=== PATIENT | male | born 1930 | race Caucasian/White ===

== ENCOUNTER 2017-06-17 06:21 | Inpatient (IN) | payer OTHER ==
[2017-05-25 13:16] VITALS: BMI 29.0
--- NOTE | 2017-05-25 14:00 | PAT Medication Instructions ---
Service Date May 25, 2017. Current Home Medication List Acetaminophen (Tylenol Arthritis Ext Rel), 650 MG PO Q8H PRN for PRN Albuterol Hfa (Ventolin Hfa), 2 PUFFS INH Q4H PRN for RN Amoxicillin (Amoxil), 500 MG PO TID Aspirin (Aspirin Ec), 81 MG PO QAM Atorvastatin (Lipitor), 40 MG PO QPM Benzonatate (Tessalon Perles), 100 MG PO TID PRN for N Glimepiride (Glimepiride), 1 TAB PO QAM Lactic Acid (Ammonium Lactate) (Amlactin), 1 DOSE TOP DAILY Magnesium Oxide (Mag-Ox), 400 MG PO QAM Meclizine Hcl (Meclizine Hcl), 25 MG PO BID PRN Metoprolol Succinate (Toprol Xl), 25 MG PO QAM Nitroglycerin (Nitrostat), 0.4 MG UT PRN Tamsulosin Hcl (Flomax), 0.4 MG PO QPM Warfarin Sodium (Coumadin), 2.5 MG PEG QPM Medication Instructions For Your Scheduled Surgery Amoxicillin (Amoxil), 500 MG PO TID (to be completed prior to surgery) - Check with surgeon and coumadin clinic for instructions: Warfarin Sodium (Coumadin), 2.5 MG PEG QPM - Hold the following medications 24 hours prior to surgery: Lactic Acid (Ammonium Lactate) (Amlactin), 1 DOSE TOP DAILY - Hold the following medications the morning of surgery: Benzonatate (Tessalon Perles), 100 MG PO TID PRN for N Glimepiride (Glimepiride), 1 TAB PO QAM Magnesium Oxide (Mag-Ox), 400 MG PO QAM - Take the following medications the morning of surgery with a sip of water: Nitroglycerin (Nitrostat), 0.4 MG UT PRN (if needed) Meclizine Hcl (Meclizine Hcl), 25 MG PO BID PRN (if needed) Metoprolol Succinate (Toprol Xl), 25 MG PO QAM Aspirin (Aspirin Ec), 81 MG PO QAM Albuterol Hfa (Ventolin Hfa), 2 PUFFS INH Q4H PRN for RN (if needed) Acetaminophen (Tylenol Arthritis Ext Rel), 650 MG PO Q8H PRN for PRN (okay to take up to 4 hours prior to surgery if needed) - Take the following medications as scheduled the night before surgery: Tamsulosin Hcl (Flomax), 0.4 MG PO QPM Nitroglycerin (Nitrostat), 0.4 MG UT PRN (if needed) Meclizine Hcl (Meclizine Hcl), 25 MG PO BID PRN (if needed) Benzonatate (Tessalon Perles), 100 MG PO TID PRN for N (if needed) Atorvastatin (Lipitor), 40 MG PO QPM Albuterol Hfa (Ventolin Hfa), 2 PUFFS INH Q4H PRN for RN (if needed) Acetaminophen (Tylenol Arthritis Ext Rel), 650 MG PO Q8H PRN for PRN (if needed) If you have any questions please call us at [phone] or [phone] or [phone]
--- NOTE | 2017-05-25 14:23 | DIAGNOSTIC IMAGING REPORT ---
CHEST 2 VIEWS ROUTINE CLINICAL HISTORY: PAT preoperative evaluation COMPARISON STUDY: No previous studies for comparison. FINDINGS: The bones soft tissues and hemidiaphragms are normal. The cardiomediastinal silhouette is normal. The lungs are clear. The pulmonary vasculature is normal. IMPRESSION: Negative chest. The above report was generated using voice recognition software. It may contain grammatical, syntax or spelling errors. Electronically signed by: Lalito Reyes M.D. 05/25/2017 2:22 PM Dictated Date/Time: 05/25/2017 2:22 PM
[2017-05-25 14:31] LABS: BASO % 0.1 %; BASO ABS # 0.01 K/uL (0-0.2); HEMATOCRIT 41.2 % (42-52); HEMOGLOBIN 13.5 g/dL (14.0-18.0); IG# 0.06 K/uL (0.00-0.02); LYMPH ABS # 0.83 K/uL (1.2-3.4); MEAN CELL VOLUME 97.6 fL (80-100); MEAN CORPUSCULAR HGB CONC 32.8 g/dl (32-36); MEAN PLATELET VOLUME 9.2 fL (7.4-10.4); MONO % 2.4 %; MONO ABS # 0.33 K/uL (0.11-0.59); NEUT % 91.1 %; NEUT ABS # 12.51 K/uL (1.4-6.5); PLATELET COUNT 237 K/uL (130-400); RED CELL DISTRIBUTION WIDTH CV 14.1 % (11.5-14.5); RED CELL DISTRIBUTION WIDTH SD 50.2 fL (36.4-46.3); WHITE BLOOD COUNT 13.74 K/uL (4.8-10.8)
[2017-05-25 14:46] LABS: INR 1.9 (0.9-1.1)
[2017-05-25 15:32] LABS: ALBUMIN 3.5 gm/dl (3.4-5.0); CALCIUM 8.9 mg/dl (8.5-10.1); CREATININE 1.47 mg/dl (0.60-1.40); POTASSIUM 4.4 mmol/L (3.5-5.1)
[2017-05-25 15:50] LABS: HEMOGLOBIN A1C 7.2 % (4.5-5.6)
--- NOTE | 2017-05-27 10:51 | HISTORY & PHYSICAL EXAMINATION ---
DATE OF ADMISSION: 06/17/2017 CHIEF COMPLAINT: Right knee pain. HISTORY OF PRESENT ILLNESS: Mr. Ruiz is an 86-year-old male with a 1 year history of right knee pain. The patient rates his pain a 7/10. He has pain with his daily activities. He has limited standing and walking tolerance. Pain is worse with weightbearing. The patient has had injections, bracing, Tylenol and home exercise program without relief. He has failed conservative treatment and is scheduled for right knee replacement. PAST MEDICAL HISTORY: Hypertension, sleep apnea, AFib, diabetes and history of CVA. He denies DVT or heart disease. PAST SURGICAL HISTORY: Left total knee arthroplasty. SOCIAL HISTORY: The patient denies alcohol or tobacco use. He lives in a 2-story home. He lives alone and is retired. FAMILY HISTORY: Negative for DVT. DISCHARGE MEDICATIONS: Aspirin 325 mg daily, meclizine 25 mg daily, tamsulosin 0.4 mg daily, atorvastatin 40 mg daily, omeprazole 20 mg daily, amlodipine 2.5 mg daily, lisinopril 10 mg daily, Januvia 25 mg, Ventolin HFA 2 puffs q. 4-6 hours p.r.n., Coumadin as prescribed, metoprolol 25 mg daily. ALLERGIES: None. REVIEW OF SYSTEMS: See HPI. Ten other systems reviewed, all negative. PHYSICAL EXAMINATION: VITAL SIGNS: Height 5 foot 8, weight 200 pounds. BMI is 30. GENERAL: This is a well-developed, well-nourished male who is alert and oriented x3. Mood and affect are appropriate. HEAD, EYES, EARS, NOSE, AND THROAT: Normocephalic, atraumatic. Mucous membranes are moist and intact. NECK: Supple without lymphadenopathy. HEART: Regular rate and rhythm without murmurs, rubs or gallops. LUNGS: Clear to auscultation without wheezes or rhonchi. ABDOMEN: Soft and nontender. Bowel sounds are equal and active. EXTREMITIES: No ecchymosis, redness or warmth. He has a varus deformity. Range of motion is from 3-110 degrees with +1 laxity. He has moderate effusion. He is neurovascularly intact with +5/5 strength. X-RAY EXAMINATION: AP and lateral views show joint space narrowing and osteophyte formation. IMPRESSION: Degenerative joint disease, right knee. PLAN: The patient will be admitted for a right total knee arthroplasty. The patient is on chronic Coumadin. He was instructed to stop this 5 days preoperatively. We will resume postop. He follows with the [facility] in [place]. The patient is debating between [place] and home with home PT upon discharge.
[~2017-06-17] VITALS: Ht 172.7 cm; Wt 88.7 kg
[2017-06-17] VITALS (10 sets, daily range): BP systolic 90–155; BP diastolic 58–81; PULSE 68–84; TEMP 36.5–37; O2SAT 94–99; Ht 172.7 cm; Wt 88.7 kg
[~2017-06-17 06:21] MED LIST: ACET1TAB84 PO; ACETAMINOPHEN 500 MG TAB PO SCH; AMOX500C3 PO; ASPI81TA28 PO; ATOR-24 PO; BENZ100C18 PO; CEFAZOLIN 2000MG IV PUSH 15 ML IV SCH; CeleBREX 200 MG CAP PO SCH; DEXAMETHASONE 4 MG TAB PO SCH; FAMOTIDINE 20 MG TAB PO SCH; GABAPENTIN 300 MG CAP PO SCH; GLIM1TAB2 PO; LACT1LOT3 TOP; LACTATED RINGER'S 1000ML 1,000 ML IV SCH; LACTATED RINGER'S 1000ML 500 ML IV SCH; MAGN400T6 PO; MECL1TAB42 PO; METO25TA3 PO; METOCLOPRAMIDE HCL 10 MG TAB PO SCH; NTRGSL/4 UT; ROPIVACAINE 5MG/ML 30 ML 150 MG, BUPIVACAINE 0.5% MPF INJ 30 ML, EpINEphrine HCL INJ 0.... INFIL SCH; TAMS0.4C38 PO; VNTHFA/IN INH; WARF1TAB PEG
[2017-06-17] MEDS ORDERED: BUPIVACAINE 0.5 % 5 MG/1 ML PF 10ML VIAL ONE (06:29)
--- NOTE | 2017-06-17 06:58 | History & Physical Bridge Note ---
H&P Re-Evaluation Bridge Note: I have examined the patient, reviewed the History & Physical and in the interval since the performance of the History & Physical I have noted the following changes of clinical significance: No changes noted
[2017-06-17] MEDS ORDERED: MIDAZOLAM HCL 1 MG/ML 2ML VIAL ONE ×2 (07:00→08:00)
[2017-06-17] MEDS ORDERED: LIDOCAINE HCL 2% 2 ML VIAL (20MG/ML) ONE ×2 (07:06→07:43)
[2017-06-17] MEDS ORDERED: PROPOFOL IV EMULSION 10 MG/ML 20 ML VIAL IV ONE ×2 (07:06→07:43)
[2017-06-17] MEDS ORDERED: POVIDONE-IODINE OP SOLN 30 ML BTL ONE (07:06)
[2017-06-17] MEDS ORDERED: BACITRACIN 50000 UNIT VIAL ONE (07:06)
[2017-06-17] MEDS ORDERED: ORTHO JOINT ANESTHETIC ONE (07:06)
[2017-06-17 07:15] LABS: PTT PATIENT 25.4 SECONDS (21.0-31.0)
[2017-06-17] MEDS ORDERED: ONDANSETRON INJ 2 MG/ML 2 ML VIAL ONE ×2 (07:43→09:04)
[2017-06-17] MEDS ORDERED: DEXAMETHASONE SOD INJ 4 MG/ML VIAL ONE (07:43)
[2017-06-17] MEDS ORDERED: FENTANYL CITRATE INJ 50 MCG/1 ML 2 ML VIAL ONE (07:43)
[2017-06-17] MEDS ORDERED: BUPIVACAINE 0.25% 30 ML VIAL ONE (07:54)
[2017-06-17] MEDS ORDERED: FENTANYL CITRATE INJ 50 MCG/1 ML 2 ML VIAL IV PRN (08:30)
[2017-06-17] MEDS ORDERED: ATROPINE SULFATE 0.1 MG/ML 5ML SYR IV PRN (08:30)
[2017-06-17] MEDS ORDERED: EpHEDrine SULFATE INJ 50 MG/ML AMP IV PRN (08:30)
[2017-06-17] MEDS ORDERED: ONDANSETRON INJ 2 MG/ML 2 ML VIAL IV PRN ×2 (08:30→10:00)
[2017-06-17] MEDS ORDERED: EpHEDrine SULFATE INJ 50 MG/ML AMP ONE (08:48)
[2017-06-17] MEDS ORDERED: PHENYLEPHRINE 100MCG/ML 5ML SYR ONE ×2 (08:48→09:57)
--- NOTE | 2017-06-17 09:11 | [facility] Post Operative Brief Note ---
Immediate Operative Summary Operative Date Jun 17, 2017. Pre-Operative Diagnosis Degenerative Joint Disease, Right Knee Post-Operative Diagnosis Degenerative Joint Disease, Right Knee Procedure(s) Performed Right Total Knee Arthroplasty Surgeon Dr Marmolejo Equine Vet Surgeon(s) Rush Bose PA-C Estimated Blood Loss 5cc Findings Consistent with Post-Op Diagnosis Specimens A: Right Knee Bone and Tissue Anesthesia Type General Complication(s) none Disposition Disposition: Recovery Room / PACU
--- NOTE | 2017-06-17 09:13 | [facility] Operative Report ---
Operative Report Operative Date Jun 17, 2017. Pre-Operative Diagnosis Degenerative Joint Disease, Right Knee Post-Operative Diagnosis Degenerative Joint Disease, Right Knee Procedure(s) Performed Right Total Knee Arthroplasty utilizing [employer] journey 2 patient matched total knee arthroplasty size 6 femur 5 tibia 12 Mini [address] Marmolejo Correctional Captain Surgeon(s) Rush Bose PA-C Estimated Blood Loss 5cc Findings Patient presents with severe end-stage tricompartmental degenerative joint disease varus alignment subchondral cysts sclerotic bone as well as osteophyte formation on marginal osteophyte formation varus alignment Specimens A: Right Knee Bone and Tissue Anesthesia Type General Complication(s) none Disposition Recovery Room / PACU Description of Procedure After proper prepping and draping of the Right lower extremity anterior midline incision was made over the region of the extensor extensor mechanism after meticulous hemostasis was obtained and maintained in subcutaneous tissues a medial parapatellar incision was made The patella was subluxed lateralward the medial lateral gutter were cleaned from any hypertrophic synovitis and scar tissue of the distal femoral block was placed and the distal femoral osteotomy cut was made subsequently the chamfers anterior and posterior osteotomy cuts were made utilizing the 4-in-1 block the tibia was subsequently subluxed anteriorward medial and ateral meniscal remnants were excised in their entirety remnants of the anterior and posterior cruciate ligaments were excised in their entirety excellent exposure of the proximal tibia was obtained the tibial osteotomy guide was placed on the proximal tibial osteotomy cut was made once again the knee was irrigated with copious amounts of sterile saline solution the patella was subsequently everted lateralward thickened scar tissue around the patella was removed the patella was subsequently cut utilizing a freehand technique and was drilled prepared for final preparation and placement of patella socially flexion-extension gaps were checked and the equal and symmetric trials were placed to the appropriate femoral and tibial trials with poly-spacer being placed for equal flexion and extension gaps and full range of motion including extension to 0 and flexion to 140 the trial components after having been taken to recovery range of motion was subsequently removed meticulous hemostasis was obtained and maintained subsequently a knee block injection of joint cocktail including ropivacaine 0.5% 150 mg. Bupivacaine 0.5 % epinephrine 1-200,030 mL's toradol 30 mg dexamethasone 4 mg ketamine 10 mg clonidine 100 micrograms normal saline solution 30 mg was infiltrated into the soft tissues of the posterior knee medial lateral gutters and periosteal synovium special attention was paid to protect neurovascular structures at all times subsequently trial components having been removed the knee was irrigated with sterile saline solution. debris was removed the proximal tibia was subsequently prepared and was made ready for the placement of the tibial component tibial component was also cemented and tamped into position the femoral component was subsequently placed and cemented in the position the patellar component was subsequently cemented in position because hemostasis once again obtained and maintained wound having been thoroughly irrigated with debridement and debridement lavage was performed as well as a medial parapatellar incision closed with #1 Vicryl in interrupted fashion subcutaneous was closed with #2 Vicryl skin was closed with skin clips. PA-C was necessary for prepping and drapping as well as wound closure of deep fascia Sub cutaneous tissue and skin and was necessary for the case. A sterile compressive dressing was placed patient was taken to recovery in stable condition of report dictated by Jaleel I attest to the content of the Intraoperative Record and any orders documented therein. Any exceptions are noted below. I attest to the content of the Intraoperative Record and any orders documented therein. Any exceptions are noted below.
[2017-06-17] MEDS ORDERED: PHENYLEPHRINE HCL INJ 10 MG/ML VIAL ONE (09:14)
[2017-06-17] MEDS ORDERED: ALUMINUM/MAGNESIUM/SIMETH (MAALOX MAX) 30 ML UDC PO PRN (10:00)
[2017-06-17] MEDS ORDERED: MAGNESIUM HYDROXIDE SUSP 30 ML UDC PO PRN (10:00)
[2017-06-17] MEDS ORDERED: ALBUTEROL HFA 8 GM INHALER INH PRN (10:00)
[2017-06-17] MEDS ORDERED: NITROGLYCERIN 0.4 MG SL PER TAB CHARGE UT PRN (10:00)
[2017-06-17] MEDS ORDERED: MoRPHine SULFATE 2 MG/ML CARP IV PRN (10:00)
[2017-06-17] MEDS ORDERED: OXYCODONE HCL IR 5 MG TAB (IMMEDIATE RELEASE) PO PRN (10:00)
--- NOTE | 2017-06-17 10:06 | DIAGNOSTIC IMAGING REPORT ---
R KNEE 1 OR 2 VIEWS ROUTINE CLINICAL HISTORY: 86 years-old Male presenting with AP/LATERAL IN PACU RIGHT KNEE. TECHNIQUE: Frontal and crosstable lateral views of the right knee were obtained. COMPARISON: None. FINDINGS: Postsurgical changes of total right knee arthroplasty with patellar resurfacing. Expected intra-articular and subcutaneous emphysema. A surgical drain and skin natalie are in place. No malalignment. No periprosthetic fracture. No hardware complication. Osteophyte noted at the medial femoral condyle. IMPRESSION: Expected postsurgical findings of total right knee arthroplasty with patellar resurfacing. Electronically signed by: Omar Patel M.D. 06/17/2017 10:04 AM Dictated Date/Time: 06/17/2017 10:04 AM
[2017-06-17] MEDS ORDERED: PHARMACY GLYCEMIC MGMT CONSULT PRN (10:14)
--- NOTE | 2017-06-17 10:38 | Anesthesiology Progress Note ---
Anesthesia Post Op Note Date & Time Jun 17, 2017 at 10:38 Vital Signs Pain Intensity: 0 Vital Signs Past 12 Hours Date Time Temp Pulse Resp B/P (MAP) Pulse Ox O2 Delivery O2 Flow Rate FiO2 06/17/17 10:25 36.2 81 15 112/63 97 Nasal Cannula 2 06/17/17 10:15 84 18 103/63 98 Nasal Cannula 2 06/17/17 10:05 83 14 109/66 100 Oxymask 10 06/17/17 09:55 85 17 99/68 100 Oxymask 10 06/17/17 09:48 36.1 87 13 98/67 100 Oxymask 10 06/17/17 06:45 36.6 68 20 155/81 98 Room Air Notes Mental Status: alert / awake / arousable, participated in evaluation Pt Amnestic to Procedure: Yes Nausea / Vomiting: adequately controlled Pain: adequately controlled Airway Patency, RR, SpO2: stable & adequate BP & HR: stable & adequate Hydration State: stable & adequate Anesthetic Complications: no major complications apparent
[2017-06-17] MEDS ORDERED: DEXTROSE 50% 50 ML SYR IV PRN (11:15)
[2017-06-17] MEDS ORDERED: GLUCOSE 40% GEL 15 GM TUBE PO PRN (11:15)
[2017-06-17] MEDS ORDERED: GLUCAGON FOR INJ 1 MG VIAL SQ PRN (11:15)
[2017-06-17] MEDS ORDERED: GLUCOSE 10 TABS/TUBE PO PRN (11:15)
[2017-06-17] MEDS ORDERED: CMD/25 PO ×2 (11:43)
[2017-06-17] MEDS: SODIUM CHLORIDE 0.9% 1000ML 1,000 ML IV SCH ×2 (11:54→21:42)
[2017-06-17] MEDS: INSULIN ASPART 100 UNITS/ML 3 ML PEN SC SCH ×4 (12:23→23:59)
[2017-06-17] MEDS: FERROUS GLUCONATE 324 MG TAB PO SCH ×2 (12:24→19:11)
--- NOTE | 2017-06-17 12:42 | Pharmacy Progress Note ---
Glycemic Control Intl Consult Date of Service Jun 17, 2017. Scope Glycemic Pharmacist consulted by Diego on 06/17/17 for glycemic control and to write orders per [facility] inpatient glycemic control protocol Objective Weight (Kilograms): 88.70 Accuchecks BSG (last 24hrs): Test 06/17/17 09:52 06/17/17 11:11 Bedside Glucose 186 mg/dl (70-99) 203 mg/dl (70-99) Recent Pertinent Medications Outpatient Anti-diabetic Regimen: * Glimepiride 1 mg PO daily * A1c = 7.2 % 05/25/17 Risk Factors for Insulin Resistance: * Steroids: ortho + dexamethasone 8 mg PO pre-op (+/- dex 4 mg IV) * Recent Surgery: R-TKA * Diet: T2DM Assessment & Plan ASSESSMENT: * 86 yr old T2DM male admitted for R-TKA * Pt is maintained on oral antidiabetic agents as an outpatient. * Will hold oral agents for admission and utilize SQ basal bolus insulin regimen which is the recommended regimen for inpatient glycemic control. * Will initiate weight based insulin dosing for insulin helga patient and titrate based on BSG trends. * Will utilize weight/stress 3 for POD #0 bolus insulin due to administration of steroids. PLAN FOR INPATIENT GLYCEMIC CONTROL: * Holding outpatient oral diabetes medications * Basal insulin * Lantus 30 units SQ x 1 * Further Lantus to be determined on 06/18 * Bolus Insulin * NOVOLOG per scale ACHS or Q6hrs while NPO * Goal Range: Low 110 mg/dL - High 140 mg/dL * Correction Factor: 20 mg/dL/unit * Nutritional / Prandial insulin per carb ratio of 1 unit per 6 grams CHO consumed * Add overnight check with coverage at 00 and 04 DISCHARGE RECOMMENDATIONS: * Continue outpatient regimen on discharge and titrate dose per out patient provider. Thank you.
--- NOTE | 2017-06-17 12:58 | Medical Consult ---
Consultation Date of Consultation: Jun 17, 2017. Attending Physician: Esau Marmolejo D.O. History of Present Illness 86 year old male who is s/p right TKA today by Dr. Marmolejo. Post operatively the patient is doing well. He reports his pain is well controlled. No abdominal pain or nausea. He denies chest pain and shortness of breath. No lightheadedness , dizziness, or diaphoresis. He denies numbness and tingling to the BLLE. He has not voided since surgery. Past Medical/Surgical History Medical Problems: (1) Bronchial asthma Status: Chronic (2) CAD (coronary artery disease) Permanent Comment: 2013 - s/p JONATAN x 3 to proximal RCA Status: Chronic (3) CKD (chronic kidney disease), stage III Status: Chronic (4) CVA (cerebral vascular accident) Status: Chronic (5) DM type 2 (diabetes mellitus, type 2) Status: Chronic (6) Dyslipidemia Status: Chronic (7) GERD (gastroesophageal reflux disease) Status: Chronic (8) HTN (hypertension) Status: Chronic (9) GASPER (obstructive sleep apnea) Status: Chronic (10) Paroxysmal A-fib Status: Chronic Surgical Problems: (1) History of carotid endarterectomy Permanent Comment: right Status: Chronic (2) History of total left knee replacement Status: Chronic Family History non contributory due to patient's age Social History Smoking Status: Never Smoker Alcohol Use: none Allergies Coded Allergies: Glipizide (Verified Adverse Reaction, Unknown, PALPITATIONS, 06/17/17) Home Medications Coumadin (Warfarin Sod) 2.5 Mg Tab 1.25 Mg PO 5XWK Coumadin (Warfarin Sod) 2.5 Mg Tab 2.5 Mg PO 2XWK Thursday, Thursday Flomax (Tamsulosin Hcl) 0.4 Mg Cap 0.4 Mg PO QPM Nitrostat (Nitroglycerin) 0.4 Mg Tab 0.4 Mg UT PRN Tylenol Arthritis Ext Rel (Acetaminophen) 650 Mg Cplt 650 Mg PO Q8H PRN Mag-Ox (Magnesium Oxide) 400 Mg Tab 400 Mg PO QAM Amlactin (Lactic Acid (Ammonium Lactate)) 12 % Lot 1 Dose TOP DAILY Glimepiride 1 Mg Tab 1 Tab PO QAM 90 Days Ventolin Hfa (Albuterol) 200 Puffs/32114 Mcg Aers 2 Puffs INH Q4H PRN Toprol Xl (Metoprolol Succinate) 25 Mg Tabcr 25 Mg PO QAM Meclizine Hcl 25 Mg Tab 25 Mg PO BID PRN Lipitor (Atorvastatin Calcium) 40 Mg Tab 40 Mg PO QPM Aspirin Ec (Aspirin) 81 Mg Tab 81 Mg PO QAM Current Inpatient Medications Current Inpatient Medications Medications (Trade) Dose Ordered Sig/Graham Route Start Time Stop Time Status Last Admin Dose Admin Fentanyl Citrate (Fentanyl Inj) 25 mcg Q5M PRN IV 06/17/17 08:30 06/17/17 13:30 Ondansetron HCl (Zofran Inj) 4 mg ONE PRN IV 06/17/17 08:30 06/17/17 13:30 Ephedrine Sulfate (EpHEDrine SULFATE INJ) 5 mg Q5M PRN IV 06/17/17 08:30 06/17/17 13:30 Atropine Sulfate (Atropine Sulfate 0.1mg/ml Inj) 0.5 mg Q1M PRN IV 06/17/17 08:30 06/17/17 13:30 Albuterol (Ventolin Hfa Inhaler) 2 puffs Q4H PRN INH 06/17/17 10:00 07/17/17 09:59 Atorvastatin Calcium (Lipitor Tab) 40 mg QPM PO 06/17/17 21:00 07/17/17 20:59 Magnesium Oxide (Mag-Ox Tab) 400 mg QAM PO 06/18/17 09:00 07/18/17 08:59 Metoprolol Succinate (Toprol Xl Tab) 25 mg QAM PO 06/18/17 09:00 07/18/17 08:59 Nitroglycerin (Nitrostat Tab) 0.4 mg UD PRN UT 06/17/17 10:00 07/17/17 09:59 Tamsulosin HCl (Flomax Cap) 0.4 mg QPM PO 06/17/17 21:00 07/17/17 20:59 Morphine Sulfate (MoRPHine SULFATE INJ) 2 mg Q4HWA PRN IV 06/17/17 10:00 07/01/17 09:59 Insulin Aspart (novoLOG ASPART) SLIDING SCALE G... ACHS SC 06/17/17 12:00 07/17/17 11:59 06/17/17 12:23 8 UNITS Miscellaneous Information (Consult Glycemic Management Pharmacy) 1 ea UD PRN N/A 06/17/17 10:14 07/17/17 10:13 Sodium Chloride 1,000 ml @ 100 mls/hr Q10H IV 06/17/17 09:49 06/18/17 09:48 06/17/17 11:54 100 MLS/HR Cefazolin Sodium 2000 mg/Syringe 15 ml @ 3.75 mls/ min Q8H IV 06/17/17 16:00 06/18/17 00:03 Oxycodone HCl (Roxicodone Immediate Rel Tab) 1 TABLET FOR PAIN RATING... Q4H PRN PO 06/17/17 10:00 07/01/17 09:59 Acetaminophen (Tylenol Tab) 1,000 mg Q8H PO 06/17/17 14:00 07/17/17 09:59 Magnesium Hydroxide (Milk Of Magnesia Susp) 30 ml Q6H PRN PO 06/17/17 10:00 07/17/17 09:59 Senna (Senokot Tab) 17.2 mg HS PO 06/17/17 21:00 07/17/17 20:59 Docusate Sodium (coLACE CAP) 100 mg BID PO 06/17/17 21:00 07/17/17 20:59 Al Hydrox/Mg Hydrox/Simethicone (Maalox Max Susp) 15 ml Q4H PRN PO 06/17/17 10:00 07/17/17 09:59 Multivitamins (Multivitamin Tab) 1 tab QAM PO 06/18/17 09:00 07/18/17 08:59 Ondansetron HCl (Zofran Inj) 4 mg Q6H PRN IV 06/17/17 10:00 07/17/17 09:59 Ferrous Gluconate (Ferrous Gluconate Tab) 324 mg TIDM PO 06/17/17 12:30 07/17/17 12:29 06/17/17 12:24 324 MG Tramadol HCl (Ultram Tab) 1 tablet for pain rating... Q4H PRN PO 06/17/17 10:00 07/17/17 09:59 Glucose (Glucose 40% Gel) 15-30 GRAMS 15 GRAMS... UD PRN PO 06/17/17 11:15 07/17/17 11:14 Glucose (Glucose Chew Tab) 4-8 Tablets 4 Tabl... UD PRN PO 06/17/17 11:15 07/17/17 11:14 Dextrose (Dextrose 50% 50ML Syringe) 25-50ML OF 50% DW IV FOR... UD PRN IV 06/17/17 11:15 07/17/17 11:14 Glucagon (Glucagon Inj) 1 mg UD PRN SQ 06/17/17 11:15 07/17/17 11:14 Aspirin (Ecotrin Tab) 81 mg DAILY PO 06/18/17 09:00 07/17/17 20:59 Warfarin Sodium (Coumadin Tab) 1.25 mg SuTuWeThSa@1600 PO 06/18/17 16:00 07/18/17 15:59 Warfarin Sodium (Coumadin Tab) 2.5 mg NOW ONCE PO 06/17/17 16:00 06/17/17 16:01 Warfarin Sodium (Coumadin Tab) 2.5 mg MoFr@1600 PO 06/19/17 16:00 07/19/17 15:59 Insulin Glargine (Lantus Solostar Pen) 30 units 1300 ONCE SC 06/17/17 13:00 06/17/17 13:01 Insulin Aspart (novoLOG ASPART) SLIDING SCALE G... 0000,0400 SC 06/18/17 00:00 06/18/17 04:01 Review of Systems ROS per HPI, all other systems reviewed and negative Physical Exam Date Time Temp Pulse Resp B/P (MAP) Pulse Ox O2 Delivery O2 Flow Rate FiO2 06/17/17 12:03 84 17 127/69 (88) 96 Nasal Cannula 2.0 06/17/17 11:26 36.6 80 17 90/58 (69) 98 Nasal Cannula 2.0 06/17/17 11:00 Nasal Cannula 2.0 06/17/17 11:00 37.0 82 16 97/62 (74) 99 Nasal Cannula 2.0 06/17/17 11:00 Nasal Cannula 2.0 06/17/17 10:40 82 16 99/65 99 Nasal Cannula 2 06/17/17 10:25 36.2 81 15 112/63 97 Nasal Cannula 2 06/17/17 10:15 84 18 103/63 98 Nasal Cannula 2 06/17/17 10:05 83 14 109/66 100 Oxymask 10 06/17/17 09:55 85 17 99/68 100 Oxymask 10 06/17/17 09:48 36.1 87 13 98/67 100 Oxymask 10 06/17/17 06:45 36.6 68 20 155/81 98 Room Air General Appearance: WD/WN, no apparent distress Head: normocephalic, atraumatic Eyes: normal inspection, EOMI, sclerae normal ENT: hearing grossly normal, + pertinent finding (mucous membranes moist) Neck: supple, no JVD, trachea midline Respiratory/Chest: lungs clear, normal breath sounds, no respiratory distress Cardiovascular: regular rate, rhythm, no edema, normal peripheral pulses Abdomen/GI: normal bowel sounds, non tender, soft, no organomegaly Extremities/Musculoskelatal: + pertinent finding (s/p right knee surgery, surgical dressing dry and intact, drain in place draining bloody drainage, CSM checks intact to RLE) Neurologic/Psych: no motor/sensory deficits, alert, normal mood/affect, oriented x 3 Laboratory Results Last 24 Hours Test 06/17/17 06:43 06/17/17 09:52 06/17/17 11:11 Prothrombin Time 11.0 SECONDS Prothromb Time International Ratio 1.0 Activated Partial Thromboplast Time 25.4 SECONDS Partial Thromboplastin Ratio 1.0 Bedside Glucose 186 mg/dl 203 mg/dl Assessment & Plan S/P RIGHT TKA - POD#0 - activity and wound care orders as per ortho - pain control with bowel regimen - PT/OT - monitor H/H for acute blood loss anemia and transfuse blood products PRN PAROXYSMAL ATRIAL FIBRILLATION - rhythm auscultates to regular on exam - continue beta larry for rate control - Coumadin resumed per ortho DM - hgb a1c 7.0 03/2017 - hold oral agents and utilize SSI + Lantus while hospitalized HX CAD - stable, no reports of chest pain - continue beta larry, statin and ASA HTN - BP controlled, continue metoprolol CKD STAGE III - baseline creat runs in the mid 1's - continue to monitor, avoid nephrotoxic agents when able HX CVA - continue ASA BPH - continue Tamsulosin DVT PROPHYLAXIS - SCDs when INR < 2.0 - Coumadin Attending Note: Patient is S/P R TKA, doing well Post OP. Denies any chest pain, SOB, dizziness. Knee pain is controlled. Denies numbness, tingling in feet. Physical Exam: Vitals signs as noted above General Appearance:Moderately built and nourished, no apparent distress Head: normocephalic, Atraumatic Eyes: normal inspection, EOMI, PERRL Neck: supple, Trachea midline Respiratory/Chest: Normal breath sounds, CTA Cardiovascular: S1, S2, No murmur Abdomen/GI:Soft, Non tender, Bowel sounds present Extremities/Musculoskelatal:normal inspection, no edema, RLE in surgical bandage Neurologic/Psych:AAOX3, grossly no focal neurological deficits Skin:normal color,warm Assessment and Plan: S/P R TKA: Mild leukocytosis Pain control On Coumadin, SCDs for anticoagulation PT/OT Disposition per Ortho Bowel regimen DM II: ISS, Lantus P.afib: rate controlled continue metoprolol Coumadin for anticoagulation monitor INR H/O Asthma per records: No signs of exacerbation I personally reviewed the record. Patient is interviewed and examined at bedside. Patient's care is coordinated with Marlin Trejo [facility] [employer] [facility]. Please refer to the documentation above for details of patient's presentation and for discussion of other issues.
[2017-06-17] MEDS ORDERED: INSULIN GLARGINE SOLOSTAR 100 UNITS/ML 3 ML PEN SC ONE (13:00)
[2017-06-17] MEDS: ACETAMINOPHEN 500 MG TAB PO SCH ×2 (13:47→21:37)
[2017-06-17] MEDS ORDERED: WARFARIN SOD 2.5 MG TAB PO ONE (16:00)
[2017-06-17] MEDS: CEFAZOLIN IV 2,000 MG in SYRINGE 0 ML IV SCH ×2 (16:31→23:57)
[2017-06-17] MEDS ORDERED: ASPIRIN 81 MG ECTAB PO SCH (21:00)
[2017-06-17] MEDS: SENNA 8.6 MG TAB PO SCH (21:36)
[2017-06-17] MEDS: ATORVASTATIN 40 MG TAB PO SCH (21:36)
[2017-06-17] MEDS: DOCUSATE SODIUM 100 MG CAP PO SCH (21:37)
[2017-06-17] MEDS: TAMSULOSIN HCL 0.4 MG CAP PO SCH (21:37)
[2017-06-18] MEDS: INSULIN ASPART 100 UNITS/ML 3 ML PEN SC SCH ×5 (03:57→21:34)
[2017-06-18] MEDS: ACETAMINOPHEN 500 MG TAB PO SCH ×3 (05:28→21:28)
[2017-06-18] MEDS: SODIUM CHLORIDE 0.9% 1000ML 1,000 ML IV SCH (06:31)
[2017-06-18 06:43] LABS: HEMATOCRIT 30.3 % (42-52); HEMOGLOBIN 10.2 g/dL (14.0-18.0); MEAN CELL VOLUME 96.2 fL (80-100); MEAN CORPUSCULAR HEMOGLOBIN 32.4 pg (25-34); MEAN CORPUSCULAR HGB CONC 33.7 g/dl (32-36); PLATELET COUNT 215 K/uL (130-400); RED CELL DISTRIBUTION WIDTH CV 13.5 % (11.5-14.5); RED CELL DISTRIBUTION WIDTH SD 47.5 fL (36.4-46.3); WHITE BLOOD COUNT 16.82 K/uL (4.8-10.8)
[2017-06-18 06:51] LABS: INR 1.2 (0.9-1.1)
[2017-06-18 07:18] LABS: CALCIUM 7.8 mg/dl (8.5-10.1); CREATININE 1.85 mg/dl (0.60-1.40); POTASSIUM 4.5 mmol/L (3.5-5.1)
[2017-06-18 08:00] VITALS: BP 100/63; PULSE 84; TEMP 36.6; O2SAT 97
[2017-06-18] MEDS: MULTIVITAMIN TAB PO SCH (08:41)
[2017-06-18] MEDS: ASPIRIN 81 MG ECTAB PO SCH (08:41)
[2017-06-18] MEDS: METOPROLOL SUCC 25MG EXT REL TAB PO SCH (08:41)
[2017-06-18] MEDS: DOCUSATE SODIUM 100 MG CAP PO SCH ×2 (08:41→21:00)
[2017-06-18] MEDS ORDERED: INSULIN GLARGINE SOLOSTAR 100 UNITS/ML 3 ML PEN SC SCH ×2 (09:00→21:00)
[2017-06-18] MEDS ORDERED: NON-FORMULARY MEDICATION (Glimepiride 1 TAB) PO SCH (09:00)
--- NOTE | 2017-06-18 09:12 | Clinical Documentation Query ---
QUERY 1 OF [address] WYMAN, In your clinical opinion is this patient being managed for: ( +) Acute kidney failure ( ) Not Agree ( ) Other explanation of clinical findings (Please Explain) ( ) Unable to determine (Please Define) ( ) Need to Discuss The medical record reflects the following clinical findings, treatment, and risk factors. Clinical Indicators: 86 yo male presenting with R knee DJD for a R TKA. Baseline Cr 1.47 (mid 1's per IM consult) which has trended up to Cr 1.85. Treatment: IV fluids, monitor PRP's, avoid nephrotoxic agents when able Risk Factors: age, CKD stage III, HTN, A fib, DM, hemovac drainage QUERY 2 OF 2 In your clinical opinion is this patient being managed for: ( ) Acute blood loss anemia ( + ) Not Agree ( ) Other explanation of clinical findings (Please Explain) ( ) Unable to determine (Please Define) ( ) Need to Discuss Likely Delusional The medical record reflects the following clinical findings, treatment, and risk factors. Clinical Indicators: Baseline Hgb 13.5/Hct 41.2, post op Hgb 10.2/Hct 30.3. Total hemovac drainage 830 cc. Treatment: monitor CBC Risk Factors: hemovac drainage Please clarify and document your clinical opinion in the progress notes and discharge summary. Terms such as "probable", "suspected", "likely", "questionable", "possible", or "still to be ruled out" are acceptable. IF IN AGREEMENT, YOU MUST DOCUMENT ABOVE DIAGNOSTIC STATEMENT IN DAILY PROGRESS NOTES AND DISCHARGE SUMMARY. This document is not part of the patient's record. Thank You, Christina Land, RN [phone]
[2017-06-18] MEDS: MAGNESIUM OXIDE 400 MG TAB PO SCH (09:49)
[2017-06-18] MEDS: FERROUS GLUCONATE 324 MG TAB PO SCH ×3 (09:49→18:18)
--- NOTE | 2017-06-18 09:53 | Orthopedic Progress Note ---
Orthopedic Progress Note Date of Service Jun 18, 2017. Subjective Post OP Day: 1 (Right TKA) Reports: feeling well, pain controlled w PO medications, Denies: complaints, chest pain, SOB, nausea / vomiting, light headedness, calf pain Objective calves soft nontender, N/V intact, capillary refill less than 2 sec., dressing C /D/I, toes mobile, hemovac drainage (400cc/8 hours) Date Time Temp Pulse Resp B/P (MAP) Pulse Ox O2 Delivery O2 Flow Rate FiO2 06/18/17 08:00 36.6 84 16 100/63 (75) 97 Room Air 06/18/17 07:56 Room Air 06/18/17 00:12 Room Air 06/17/17 22:55 36.8 72 18 96/62 (73) 94 Room Air 06/17/17 19:54 36.6 81 16 153/69 (97) 99 Room Air 06/17/17 16:52 99 Room Air 06/17/17 15:30 Nasal Cannula 2.0 06/17/17 15:24 36.5 79 16 119/61 (80) 99 Nasal Cannula 2.0 06/17/17 14:00 36.6 78 16 119/62 (81) 97 Nasal Cannula 2.0 06/17/17 14:00 Nasal Cannula 2.0 06/17/17 13:09 80 17 125/64 (84) 96 Nasal Cannula 2.0 06/17/17 12:03 84 17 127/69 (88) 96 Nasal Cannula 2.0 06/17/17 11:26 36.6 80 17 90/58 (69) 98 Nasal Cannula 2.0 06/17/17 11:00 Nasal Cannula 2.0 06/17/17 11:00 37.0 82 16 97/62 (74) 99 Nasal Cannula 2.0 06/17/17 11:00 Nasal Cannula 2.0 06/17/17 10:40 82 16 99/65 99 Nasal Cannula 2 06/17/17 10:25 36.2 81 15 112/63 97 Nasal Cannula 2 06/17/17 10:15 84 18 103/63 98 Nasal Cannula 2 06/17/17 10:05 83 14 109/66 100 Oxymask 10 06/17/17 09:55 85 17 99/68 100 Oxymask 10 Laboratory Results 24 Hours: Test 06/18/17 06:31 Hematocrit 30.3 % Hemoglobin 10.2 g/dL Prothromb Time International Ratio 1.2 Prothrombin Time 12.6 SECONDS Assessment & Plan Assessment: POD #1 s/p Right TKA -pt/ot dvt proph with letitia/scd/coumadin referral placed for [facility] DM2- on insulin sliding Scale HTN sleep apnea AFib- on chronic coumadin history of CVA Discharge Planning Discharge Planning: uncertain DVT Prophylaxis: TEDs, SCDs, Coumadin Therapy: Physical Therapy
[2017-06-18 10:36] VITALS: BP 128/69; PULSE 72; TEMP 36.7; O2SAT 98
--- NOTE | 2017-06-18 10:38 | Pharmacy Progress Note ---
Glycemic Control Progress Note Date of Service Jun 18, 2017. Scope Glycemic Pharmacist consulted for glycemic control to write orders per [facility] inpatient glycemic control protocol. Objective Accuchecks BSG (last 24hrs): Test 06/17/17 11:11 06/17/17 16:48 06/17/17 20:36 06/17/17 23:56 Bedside Glucose 203 mg/dl (70-99) 266 mg/dl (70-99) 245 mg/dl (70-99) 174 mg/dl (70-99) Test 06/18/17 03:34 06/18/17 06:31 06/18/17 07:55 Bedside Glucose 151 mg/dl (70-99) 202 mg/dl (70-99) Random Glucose 155 mg/dl (70-99) Outpatient Anti-Diabetic Meds * Glimepiride 1 mg PO daily * A1c = 7.2 % 05/25/17 Risk Factors for Insulin Resistance: * Steroids: ortho + dexamethasone 8 mg PO pre-op (+/- dex 4 mg IV) * Recent Surgery: R-TKA * Diet: T2DM Assessment & Plan ASSESSMENT: * 86 yr old T2DM male POD # 1 s/p R-TKA * Pt is maintained on oral antidiabetic agents as an outpatient. * Oral agents were held at the time of admission. Basal bolus SQ regimen was initiated based on weight/stress of 3 d/t administration of steroids. * Fasting BSG of 202 mg/dL was elevated. Will give additional Lantus this am and add scale for HS based on BSG. * Prandial BSGs improving. Will loosen CF/CR starting with dinner since patient was not ordered ongoing steroids. PLAN FOR INPATIENT GLYCEMIC CONTROL: * Holding outpatient oral diabetes medications * Basal insulin * Lantus 20 units SQ this am * Lantus 0-10 units SQ HS (10 units if BSG is > 150 mg/dL) * Bolus Insulin * NOVOLOG per scale ACHS or Q6hrs while NPO * Goal Range: Low 110 mg/dL - High 140 mg/dL * Correction Factor: 20 mg/dL/unit - loosen to 25 starting with dinner * Nutritional / Prandial insulin per carb ratio of 1 unit per 6 grams CHO consumed - loosen to 9 starting with dinner DISCHARGE RECOMMENDATIONS: * Continue outpatient regimen on discharge and titrate dose per out patient provider. Thank you.
--- NOTE | 2017-06-18 11:51 | Progress Note ---
Internal Med Progress Note Date of Service: Jun 18, 2017. Provider Documentation: SUBJECTIVE: The patient was seen and examined Complains of some pain in right knee Denies any other symptoms OBJECTIVE: Vital Signs-as noted below Exam: General-No distress at rest Eyes-normal ENT-normal Neck-supple Lungs-clear to ausucltate bilaterally Heart-regular,no murmur appreciated Abdomen-Benign,no masses,bowel sound present Extremities-Trace edema on roght Neuro-AAOx3 Lab data as noted below. ASSESSMENT & PLAN: S/P RIGHT TKA - POD#1 - activity and wound care orders as per ortho -minimal pain in knee -ortho managing - PT/OT Anemia Doubt any significant Blood loss Likely secondary to Dilution and effect of Surgery Will monitor CKD STAGE III with FABIOLA - baseline creat runs in the mid 1's -complicated by dehydration -continue IVF and Monitor PAROXYSMAL ATRIAL FIBRILLATION - rhythm auscultates to regular on exam - continue beta larry for rate control - Coumadin resumed per ortho -no acute symptoms DM - hgb a1c 7.0 03/2017 - hold oral agents and utilize SSI + Lantus while hospitalized HX CAD - stable, no reports of chest pain - continue beta larry, statin and ASA HTN - BP controlled, continue metoprolol HX CVA - continue ASA BPH - continue Tamsulosin DVT PROPHYLAXIS - SCDs when INR < 2.0 - Coumadin Vital Signs: Date Time Temp Pulse Resp B/P (MAP) Pulse Ox O2 Delivery O2 Flow Rate FiO2 06/18/17 10:36 36.7 72 16 128/69 (88) 98 Room Air 06/18/17 08:00 36.6 84 16 100/63 (75) 97 Room Air 06/18/17 07:56 Room Air 06/18/17 00:12 Room Air 06/17/17 22:55 36.8 72 18 96/62 (73) 94 Room Air 06/17/17 19:54 36.6 81 16 153/69 (97) 99 Room Air 06/17/17 16:52 99 Room Air 06/17/17 15:30 Nasal Cannula 2.0 06/17/17 15:24 36.5 79 16 119/61 (80) 99 Nasal Cannula 2.0 06/17/17 14:00 36.6 78 16 119/62 (81) 97 Nasal Cannula 2.0 06/17/17 14:00 Nasal Cannula 2.0 06/17/17 13:09 80 17 125/64 (84) 96 Nasal Cannula 2.0 06/17/17 12:03 84 17 127/69 (88) 96 Nasal Cannula 2.0 Lab Results: Results Past 24 Hours Test 06/17/17 16:48 06/17/17 20:36 06/17/17 23:56 06/18/17 03:34 Range/Units Bedside Glucose 266 245 174 151 70-99 mg/dl Test 06/18/17 06:31 06/18/17 07:55 Range/Units White Blood Count 16.82 4.8-10.8 K/uL Red Blood Count 3.15 4.7-6.1 M/uL Hemoglobin 10.2 14.0-18.0 g/dL Hematocrit 30.3 42-52 % Mean Corpuscular Volume 96.2 80-100 fL Mean Corpuscular Hemoglobin 32.4 25-34 pg Mean Corpuscular Hemoglobin Concent 33.7 32-36 g/dl RDW Standard Deviation 47.5 36.4-46.3 fL RDW Coefficient of Variation 13.5 11.5-14.5 % Platelet Count 215 130-400 K/uL Mean Platelet Volume 9.0 7.4-10.4 fL Prothrombin Time 12.6 9.0-12.0 SECONDS Prothromb Time International Ratio 1.2 0.9-1.1 Sodium Level 138 136-145 mmol/L Potassium Level 4.5 3.5-5.1 mmol/L Chloride Level 106 98-107 mmol/L Carbon Dioxide Level 25 21-32 mmol/L Anion Gap 7.0 3-11 mmol/L Blood Urea Nitrogen 26 7-18 mg/dl Creatinine 1.85 0.60-1.40 mg/dl Est Creatinine Clear Calc Drug Dose 32.2 ml/min Estimated GFR () 37.9 Estimated GFR (Non- 32.7 BUN/Creatinine Ratio 14.2 10-20 Random Glucose 155 70-99 mg/dl Calcium Level 7.8 8.5-10.1 mg/dl Bedside Glucose 202 70-99 mg/dl
[2017-06-18 12:38] VITALS: BP 125/72
[2017-06-18 14:58] VITALS: BP 118/69; PULSE 68; TEMP 36.9; O2SAT 97
[2017-06-18] MEDS ORDERED: WARFARIN SOD 1.25 MG TAB PO SCH (16:00)
[2017-06-18] MEDS: SENNA 8.6 MG TAB PO SCH (21:00)
[2017-06-18] MEDS: ATORVASTATIN 40 MG TAB PO SCH (21:27)
[2017-06-18] MEDS: TAMSULOSIN HCL 0.4 MG CAP PO SCH (21:27)
[2017-06-19 00:10] VITALS: BP 147/63; PULSE 68; TEMP 37.1; O2SAT 97
[2017-06-19] MEDS: ACETAMINOPHEN 500 MG TAB PO SCH ×2 (05:39→13:38)
[2017-06-19 06:43] LABS: HEMATOCRIT 25.5 % (42-52); HEMOGLOBIN 8.5 g/dL (14.0-18.0); MEAN CELL VOLUME 96.6 fL (80-100); MEAN CORPUSCULAR HEMOGLOBIN 32.2 pg (25-34); MEAN CORPUSCULAR HGB CONC 33.3 g/dl (32-36); MEAN PLATELET VOLUME 8.9 fL (7.4-10.4); PLATELET COUNT 183 K/uL (130-400); RED CELL DISTRIBUTION WIDTH CV 14.5 % (11.5-14.5); RED CELL DISTRIBUTION WIDTH SD 51.4 fL (36.4-46.3); WHITE BLOOD COUNT 8.97 K/uL (4.8-10.8)
[2017-06-19 06:50] LABS: INR 1.3 (0.9-1.1)
[2017-06-19 06:59] LABS: CALCIUM 7.9 mg/dl (8.5-10.1); CREATININE 1.67 mg/dl (0.60-1.40); POTASSIUM 4.1 mmol/L (3.5-5.1)
[2017-06-19 07:32] VITALS: BP 97/59; PULSE 70; TEMP 36.4; O2SAT 95
--- NOTE | 2017-06-19 07:57 | Orthopedic Progress Note ---
Orthopedic Progress Note Date of Service Jun 19, 2017. Subjective Post OP Day: 2 Reports: feeling well, Denies: chest pain, SOB, nausea / vomiting, light headedness, calf pain Objective calves soft nontender, N/V intact, capillary refill less than 2 sec., dressing C /D/I (SILVERLON), A&O x3 Date Time Temp Pulse Resp B/P (MAP) Pulse Ox O2 Delivery O2 Flow Rate FiO2 06/19/17 07:32 36.4 70 20 97/59 (72) 95 Room Air 06/19/17 00:15 Room Air 06/19/17 00:10 37.1 68 18 147/63 (91) 97 Room Air 06/18/17 15:30 Room Air 06/18/17 14:58 36.9 68 16 118/69 (85) 97 Room Air 06/18/17 10:36 36.7 72 16 128/69 (88) 98 Room Air 06/18/17 08:00 36.6 84 16 100/63 (75) 97 Room Air Laboratory Results 24 Hours: Test 06/19/17 06:11 Hematocrit 25.5 % Hemoglobin 8.5 g/dL Prothromb Time International Ratio 1.3 Prothrombin Time 13.9 SECONDS Assessment & Plan Assessment: POD #2 s/p Right TKA -pt/ot dvt proph with letitia/scd/coumadin referral placed for [facility]- STABLE FOR TRANSFER WHEN ACCEPTED. DM2- on insulin sliding Scale HTN sleep apnea AFib- on chronic coumadin history of CVA Discharge Planning Discharge Planning: uncertain DVT Prophylaxis: TEDs, SCDs, Coumadin Therapy: Physical Therapy
[2017-06-19] MEDS ORDERED: SENN-61 PO (08:00)
[2017-06-19] MEDS ORDERED: ACET-24 PO (08:00)
[2017-06-19] MEDS ORDERED: ONDA8TAB6 PO (08:00)
[2017-06-19] MEDS ORDERED: RXC5 PO (08:00)
--- NOTE | 2017-06-19 08:03 | Discharge Instructions ---
Discharge Instructions Date of Service Jun 19, 2017. Admission Reason for Admission: Right Knee Osteoarthritis Discharge Discharge Diagnosis / Problem: SP RIGHT TKA Discharge Goals Goal(s): Decrease discomfort, Improve function, Increase independence Activity Recommendations Activity Level: Assistance Required . Additional Information Patient informed of condition: Yes Advance Directives: Yes DNR: No Level of Care: Acute Rehab Communicable Disease: No Prognosis: Stable Instructions / Follow-Up Instructions / Follow-Up ACTIVITY RECOMMENDATIONS: SELF CARE INSTRUCTIONS AFTER TOTAL KNEE REPLACEMENT A. You may need to continue a physical therapy program after discharge from the hospital. There are several options available to you. Your doctor will assist you in selecting the best one for you. 1. An out-patient facility 2 to 3 times a week for therapy or home therapy. 2. Continue working on all exercises taught to you in the hospital. Your goals should be to increase bending of your knee to 90 degrees and beyond and to fully straighten your knee. B. You may progress at your own pace from walking with a walker or crutches to a cane; then to no assistive devices. C. Make walking a part of your daily routine. Be up as much as comfortable with rest periods throughout the day. Rest with leg elevation is very important. Use the ice wrap frequently for the first 3-4 weeks. D. There are no restrictions on activities. You may ride in a car, shop, participate in food product inspector and all social activities. E. Wear the long elastic stockings (AMPARO hose) 20 hours a day for 2 weeks after surgery. They can be removed several times a day for laundering and for a bath. F. You may shower, no tub baths until cleared by your doctor. SPECIAL CARE INSTRUCTIONS: VERY IMPORTANT TO READ AND REVIEW A. There are a few signs you need to watch for after you are home. Call [facility] [place] if you notice any of the followin. Increased severe knee pain. Some pain is expected especially when you exercise. 2. Increased swelling in your leg or knee; pain or swelling of the calf muscle in either lower leg. 3. Any fluid drainage from the incision. 4. Shortness of breath or chest pain. B. Please call [facility] at if you have any concerns or questions about your operation or recovery. The doctor or his nurse will return your call promptly. C. You must take antibiotics before dental work, bladder, bowel or other surgery. Your doctor will provide you with a permanent care to carry describing this precaution. IMPORTANT: * HIGH RISK PATIENTS MAY BE PRESCRIBED A STRONGER BLOOD THINNER. THIS WILL BE PROVIDED AT DISCHARGE. RESUME COUMADIN PRESCRIBED. WILL REQUIRE WEEKLY MONITORING. * CALL IF INCREASED PAIN, REDNESS, DRAINAGE OR FEVER GREATER THAT 101. * WEAR AMPARO HOSE 20 HOURS PER DAY FOR 2 WEEKS. * YOU MAY HAVE A LARGE BAND-AID LIKE DRESSING (SILVERON). THIS WILL REMAIN ON YOUR INCISION FOR 7 DAYS, THEN CAN BE REMOVED. IF INCISION IS LEAKING THROUGH DRESSING, CALL THE OFFICE . FOLLOW UP VISIT: If appointment is not already scheduled: Please call [facility] [place] to make a follow-up appointment for 2 weeks after your surgery at . Current Hospital Diet Patient's current hospital diet: Diabetes Type 2 Diet Discharge Diet Recommended Diet: Regular Diet Procedures Procedures Performed: Right Total Knee Arthroplasty utilizing [employer] journey 2 patient matched total knee arthroplasty size 6 femur 5 tibia 12 Mnii 32 oval patella Pending Studies Studies pending at discharge: no Physician Orders On Transfer Additional Orders: WEEKLY PT/INR, FOLLOW COUMADIN NOMOGRAM OR DEFER TO PATIENT'S NORMAL COAG CLINIC. TEDS 20 HRS PER DAY X 2 WEEKS FOLLOW [place]ED[place] [facility] [place] REMOVE SILVERLON 7 DAYS POST OP UNLESS SATURATED, THEN CHANGE SOONER. Laboratory Results Hemoglobin A1c Test 05/25/17 14:05 Range/Units Estimated Average Glucose 160 mg/dl Hemoglobin A1c 7.2 H 4.5-5.6 % Medical Emergencies . Who to Call and When: Medical Emergencies: If at any time you feel your situation is an emergency, please call 911 immediately. . Non-Emergent Contact Non-Emergency issues call your: Primary Care Provider, Surgeon . . "Provider Documentation" section prepared by Daja Khan. . Core Measure Problem Core Measures: None [place] Drug Monitoring Program Search Results: patient reviewed within database, no issues identified
[2017-06-19] MEDS: DOCUSATE SODIUM 100 MG CAP PO SCH (09:00)
[2017-06-19] MEDS: INSULIN ASPART 100 UNITS/ML 3 ML PEN SC SCH ×2 (09:03→13:02)
[2017-06-19 09:08] VITALS: BP 118/68; PULSE 88
[2017-06-19] MEDS: FERROUS GLUCONATE 324 MG TAB PO SCH ×2 (09:28→13:06)
[2017-06-19] MEDS: ASPIRIN 81 MG ECTAB PO SCH (09:29)
[2017-06-19] MEDS: MAGNESIUM OXIDE 400 MG TAB PO SCH (09:29)
[2017-06-19] MEDS: MULTIVITAMIN TAB PO SCH (09:30)
[2017-06-19] MEDS: METOPROLOL SUCC 25MG EXT REL TAB PO SCH (09:31)
[2017-06-19] MEDS: TRAMADOL HCL 50 MG TAB PO PRN ×2 (09:33→13:40)
[2017-06-19 09:49] VITALS: O2SAT 95
[2017-06-19 12:07] VITALS: BP 132/74; PULSE 82; TEMP 36.6; O2SAT 100
[2017-06-19] MEDS ORDERED: WARFARIN SOD 2.5 MG TAB PO SCH (16:00)
[2017-06-19] MEDS ORDERED: INSULIN GLARGINE SOLOSTAR 100 UNITS/ML 3 ML PEN SC SCH (21:00)
--- NOTE | 2017-06-22 11:04 | DISCHARGE SUMMARY ---
DISCHARGE DIAGNOSIS: Degenerative joint disease, right knee. SECONDARY DIAGNOSES: Hypertension, sleep apnea, atrial fibrillation, diabetes mellitus, history of CVA. CONSULTS: KRISTEN Hartman/Avery Landers MD COMPLICATIONS: None. PROCEDURES: Right total knee arthroplasty performed by Dr. Marmolejo on 06/17/2017. BRIEF HISTORY: As dictated in the history and physical. HOSPITAL SUMMARY: The patient was admitted on the above-noted date and had the above-noted surgery performed, which he tolerated well. On the patient's first postoperative day, he was feeling well, pain was controlled. He had no complaints. Calves were soft, nontender, neurovascularly intact. Dressings were clean, dry and intact. Toes were mobile. Vital signs were stable and he was afebrile. Hemoglobin was 10.2. He was started on physical therapy protocol and continued on DVT prophylaxis, pain management and medical management per [facility] service. By his second postoperative day, he was feeling well and had no complaints. Calves were soft and nontender, neurovascularly intact. Dressings were clean, dry and intact. Toes were mobile. Vital signs were stable. He was afebrile. Hemoglobin was 8.5. He had been restarted on his Coumadin and INR was 1.3. He was progressing with his physical therapy and plans were for him to go to [facility] senior living facility, which he had been accepted and he was thusly transferred there on 06/19/2017. For further review, please see chart. LABORATORY AND X-RAY DATA: As per chart. DISCHARGE INSTRUCTIONS: The patient was discharged to [facility] on 06/19/2017. DIET: Diabetic. ACTIVITY: Assistance required. The patient to have PT and OT protocols per total knee replacement and follow instructions as noted as well as special instructions. Follow up with Dr. Menezes in 2 weeks. The patient is to call for appointment. The patient is to have weekly PT and INR draws with following on a Coumadin nomogram and defer to the patient's normal coag clinic, AMPARO farooq 20 hours per day for 2 weeks. Remove Silverlon in 7 days unless saturated, then change sooner. DISCHARGE MEDICATIONS: Acetaminophen 1000 mg p.o. q. 8 hours for 30 days, Zofran 8 mg p.o. q. 8 hours p.r.n. nausea, oxycodone 5-10 mg p.o. q. 4 hours p.r.n., senna 17.2 mg p.o. at bedtime. Resume home meds as listed in discharge instructions section. Stop taking your older dose of acetaminophen.
== END 2017-06-19 14:03 | DRG 470 ==
LOC: C.ACU 06:21 → C.3E 06:45 → ENRESERV 10:41 → CMPBEDREQ 11:01
PROVIDERS: ADMIT Orthopaedic Surgery; ATTEND Orthopaedic Surgery
PROC: 0SRC0J9 Replacement of Right Knee Joint with Synthetic Substitute, Cemented, Open Approach (ICD-10-PCS; principal; 2017-06-17 08:15)
DX: M17.11 Unilateral primary osteoarthritis, right knee (principal); I13.10 Hypertensive heart and chronic kidney disease without heart failure, with stage 1 through stage 4 chronic kidney disease, or unspecified chronic kidney disease; I48.0 Paroxysmal atrial fibrillation; E11.9 Type 2 diabetes mellitus without complications; N18.3 Chronic kidney disease, stage 3 (moderate); I25.10 Atherosclerotic heart disease of native coronary artery without angina pectoris; E78.5 Hyperlipidemia, unspecified; N40.0 Benign prostatic hyperplasia without lower urinary tract symptoms; J45.909 Unspecified asthma, uncomplicated; Z79.899 Other long term (current) drug therapy; Z79.84 Long term (current) use of oral hypoglycemic drugs; Z79.01 Long term (current) use of anticoagulants; Z79.82 Long term (current) use of aspirin; Z96.652 Presence of left artificial knee joint; Z86.73 Personal history of transient ischemic attack (TIA), and cerebral infarction without residual deficits

== ENCOUNTER → 2017-12-28 | Outpatient (CLI) | payer OTHER ==
[~2017-12-28] MED LIST changes: +ACET-1693 PO; -ACET1TAB84 PO; -ACETAMINOPHEN 500 MG TAB PO SCH; -AMOX500C3 PO; -BENZ100C18 PO; -CEFAZOLIN 2000MG IV PUSH 15 ML IV SCH; +CMD/25 PO; -CeleBREX 200 MG CAP PO SCH; -DEXAMETHASONE 4 MG TAB PO SCH; -FAMOTIDINE 20 MG TAB PO SCH; -GABAPENTIN 300 MG CAP PO SCH; -LACT1LOT3 TOP; -LACTATED RINGER'S 1000ML 1,000 ML IV SCH; -LACTATED RINGER'S 1000ML 500 ML IV SCH; -METO25TA3 PO; +METO25TA4 PO; -METOCLOPRAMIDE HCL 10 MG TAB PO SCH; -ROPIVACAINE 5MG/ML 30 ML 150 MG, BUPIVACAINE 0.5% MPF INJ 30 ML, EpINEphrine HCL INJ 0.... INFIL SCH; -WARF1TAB PEG
[2017-12-28 12:13] LABS: BASO % 0.4 %; BASO ABS # 0.03 K/uL (0-0.2); EOS % 6.8 %; EOS ABS # 0.48 K/uL (0-0.5); HEMATOCRIT 43.4 % (42-52); HEMOGLOBIN 14.2 g/dL (14.0-18.0); IG# 0.03 K/uL (0.00-0.02); LYMPH % 24.1 %; LYMPH ABS # 1.69 K/uL (1.2-3.4); MEAN CORPUSCULAR HEMOGLOBIN 31.4 pg (25-34); MEAN CORPUSCULAR HGB CONC 32.7 g/dl (32-36); MEAN PLATELET VOLUME 9.1 fL (7.4-10.4); MONO % 10.1 %; MONO ABS # 0.71 K/uL (0.11-0.59); NEUT % 58.2 %; NEUT ABS # 4.07 K/uL (1.4-6.5); PLATELET COUNT 239 K/uL (130-400); RED CELL DISTRIBUTION WIDTH CV 13.9 % (11.5-14.5); RED CELL DISTRIBUTION WIDTH SD 48.4 fL (36.4-46.3); WHITE BLOOD COUNT 7.01 K/uL (4.8-10.8)
[2017-12-28 12:22] LABS: ALBUMIN 3.5 gm/dl (3.4-5.0); BLOOD UREA NITROGEN 24 mg/dl (7-18); CALCIUM 9.2 mg/dl (8.5-10.1); CARBON DIOXIDE 31 mmol/L (21-32); CREATININE 1.48 mg/dl (0.60-1.40); GLUCOSE 93 mg/dl (70-99); POTASSIUM 4.1 mmol/L (3.5-5.1); SODIUM 141 mmol/L (136-145)
[2017-12-28 12:34] LABS: INR 2.5 (0.9-1.1); PTT PATIENT 33.6 SECONDS (21.0-31.0)
[2017-12-28 12:47] LABS: HEMOGLOBIN A1C 6.9 % (4.5-5.6)
== END | disposition home or self-care (01) ==
LOC: C.CPL 11:02
PROVIDERS: ATTEND Orthopaedic Surgery
DX: Z01.818 Encounter for other preprocedural examination (principal)